=== PATIENT | female | born 1950 | race Caucasian/White ===

== ENCOUNTER 2017-11-07 17:04 | Inpatient (IN) | payer BC ==
[~2017-11-07] VITALS: Ht 139.7 cm; Wt 36.6 kg
[2017-11-07] MEDS ORDERED: MoRPHine SULFATE 2 MG/ML CARP IV PRN (19:00)
[2017-11-07] MEDS ORDERED: ONDANSETRON INJ 2 MG/ML 2 ML VIAL IV PRN (19:00)
[2017-11-07 19:05] VITALS: BP 138/83; PULSE 117; TEMP 38; O2SAT 96; BMI 17.6
[2017-11-07] MEDS ORDERED: HydrALAZINE HCL 20 MG/ML VIAL IV PRN (19:15)
[2017-11-07] MEDS ORDERED: SIMV20TA2 PO (19:27)
[2017-11-07] MEDS ORDERED: DORZ1SOL6 OP (19:27)
[2017-11-07] MEDS ORDERED: MULT-506 PO (19:27)
[2017-11-07] MEDS ORDERED: LISI-729 PO (19:27)
[2017-11-07] MEDS ORDERED: GLC/500 PO (19:27)
[2017-11-07] MEDS ORDERED: LATA0.5S OP (19:27)
[2017-11-07] MEDS ORDERED: OYST500T47 PO (19:27)
--- NOTE | 2017-11-07 19:28 | History and Physical ---
History & Physical Date & Time of Service: Nov 07, 2017 at 19:23 Chief Complaint: Acute Cholcystitis Primary Care Physician: Rafael Rod D.O. History of Present Illness pt is a transfer from [facility], she presented after one day of rigors and jaundice, she has some vague burning abdominal pain that is worsened post prandially she has had a few weeks of harding colored stools and tea colored urine. she has had a 15# weight loss over the last few week and has no history of gall stones or kidney stones I have not seen the CT scan or report but nursing reports suggest possible cholecystitis and duct dilation and cannot rule out pancreatic mass Past Medical/Surgical History Medical Problems: (1) Cholecystitis with cholelithiasis Family History family history of gall stones Social History Smoking Status: Never Smoker Smokeless Tobacco Use: No Alcohol Use: none Allergies Coded Allergies: Amoxicillin (Verified Allergy, Unknown, unknown, 11/07/17) Home Medications Scheduled Dorzolamide Hcl-Timolol Maleat (Cosopt Oph), 1 DROPS OP BID Latanoprost (Xalatan 0.005% Oph Grazyna), 1 DROPS OP HS Lisinopril (Zestril), 5 MG PO DAILY Metformin Hcl (Glucophage), 500 MG PO BID Multivitamin (Multivitamin), 1 TAB PO DAILY Oyster Shell (Calcium), 1 TAB PO DAILY Simvastatin (Zocor), 20 MG PO QPM Review of Systems ROS: well nourished well developed. No double vision blurry vision No problems with speech or swallowing No palpitations, chest pain or pressure No Wheezing or breathing issues mild abdominal pain, mild nausea no vomiting, no diarrhea but changes in stool apprearance, weight loss No burning urine urine frequency, darkness of urine No focal joint pain or muscle pain No skin rashes or oral lesions, but has been jaundiced No unusual bruising or bleeding No focused back pain or numbness or loss of strength No changes in memory or confusion Physical Exam General Appearance: WD/WN, no apparent distress Head: normocephalic, atraumatic Eyes: normal inspection, + abnormal sclerae exam (icteric) ENT: hearing grossly normal, + pertinent finding (buccal jaundice) Neck: supple, no JVD Respiratory/Chest: chest non-tender, lungs clear, normal breath sounds Cardiovascular: regular rate, rhythm, no murmur Abdomen/GI: normal bowel sounds, soft, + tenderness, + guarding Back: no CVA tenderness, normal range of motion Extremities/Musculoskelatal: no pedal edema, normal range of motion Neurologic/Psych: alert, oriented x 3 Skin: no rash, + jaundice Lymphatic: no adenopathy Diagnostics Diagnostic Radiology will need to review CT scans with GI medicine Impression Assessment and Plan (1) Cholecystitis with cholelithiasis Assessment & Plan: acute cholecystitis, will have on unasyn, I spoke to gastroenterology and they will see in consult to eval for possible ERCP and EUS , will keep npo after mn and hydrate with ivg, morphine iv for pain and zofran for nausea (2) Fever Assessment & Plan: antibiotics and will have blood cultures here if not done at [facility] (3) HTN (hypertension) Assessment & Plan: Pt typically takes some lisinopril, since npo will have hydralazine iv prn (4) Diabetes Assessment & Plan: will have to hold glucophage, will use ssi at this time (5) Dyslipidemia Assessment & Plan: will hold zocor Resuscitation Status VTE Prophylaxis Will order VTE Prophylaxis: Yes (heparin sq) Problem Qualifiers (1) Diabetes: Diabetes mellitus type: type 2 Diabetes mellitus shelter insulin use: without predatory animal exterminator use Diabetes mellitus complication status: without complication Qualified Codes: E11.9 - Type 2 diabetes mellitus without complications
[2017-11-07] MEDS ORDERED: GLUCAGON FOR INJ 1 MG VIAL IM PRN (20:30)
[2017-11-07] MEDS ORDERED: CARBOHYDRATES FOR HYPOGLYCEMIA PO PRN (20:30)
[2017-11-07] MEDS ORDERED: DEXTROSE 50% 50 ML SYR IV PRN (20:30)
[2017-11-07] MEDS ORDERED: GLUCOSE 10 TABS/TUBE PO PRN (20:30)
[2017-11-07] MEDS ORDERED: GLUCOSE 40% GEL 15 GM TUBE PO PRN (20:30)
[2017-11-07 21:41] LABS: PTT PATIENT 26.1 SECONDS (21.0-31.0)
[2017-11-07] MEDS: AMPICILLIN/SULBACTAM SOD INJ 3,000 MG in SODIUM CHLORIDE 0.9% 100ML 100 ML IV SCH (21:55)
[2017-11-07] MEDS: SODIUM CHLORIDE 0.9% 1000ML 1,000 ML IV SCH (21:55)
[2017-11-07] MEDS: INSULIN ASPART 100 UNITS/ML 3 ML PEN SC SCH (21:58)
[2017-11-07 23:33] VITALS: BP 169/78; PULSE 95; TEMP 37; O2SAT 98
[2017-11-08] VITALS (14 sets, daily range): BP systolic 117–177; BP diastolic 63–89; PULSE 87–105; TEMP 36.5–37.3; O2SAT 95–99; Ht 139.7 cm; Wt 36.6 kg
[2017-11-08] MEDS: AMPICILLIN/SULBACTAM SOD INJ 3,000 MG in SODIUM CHLORIDE 0.9% 100ML 100 ML IV SCH ×4 (03:02→20:14)
[2017-11-08 07:10] LABS: HEMATOCRIT 31.9 % (37-47); HEMOGLOBIN 10.4 g/dL (12.0-16.0); MEAN CELL VOLUME 93.5 fL (80-100); MEAN CORPUSCULAR HEMOGLOBIN 30.5 pg (25-34); MEAN CORPUSCULAR HGB CONC 32.6 g/dl (32-36); MEAN PLATELET VOLUME 9.6 fL (7.4-10.4); PLATELET COUNT 337 K/uL (130-400); RED CELL DISTRIBUTION WIDTH CV 14.9 % (11.5-14.5); RED CELL DISTRIBUTION WIDTH SD 51.4 fL (36.4-46.3); WHITE BLOOD COUNT 10.39 K/uL (4.8-10.8)
[2017-11-08 07:45] LABS: ALBUMIN 1.8 gm/dl (3.4-5.0); CALCIUM 8.2 mg/dl (8.5-10.1); CREATININE 0.6 mg/dl (0.60-1.20); POTASSIUM 2.8 mmol/L (3.5-5.1)
[2017-11-08] MEDS: SODIUM CHLORIDE 0.9% 1000ML 1,000 ML IV SCH (07:50)
[2017-11-08] MEDS: HEPARIN SOD 5000 UNIT/0.5 ML CARP SQ SCH ×2 (07:51→20:13)
[2017-11-08] MEDS: INSULIN ASPART 100 UNITS/ML 3 ML PEN SC SCH ×4 (07:52→20:14)
--- NOTE | 2017-11-08 08:04 | Progress Note ---
Subjective Date of Service: Nov 08, 2017. Subjective pt has fairly painless jaundice, she is for EGD and Possible EUS today pt otherwise has no new complaints Review of Systems Constitutional: + weakness, No fever, No chills ENT: No hearing loss, No nasal symptoms Respiratory: No cough, No sputum, No wheezing Cardiac: No chest pain, No orthopnea, No PND Abdomen: + nausea, No pain, No vomiting, No diarrhea, No constipation Musculoskeletal: No joint pain, No muscle pain Female : No dysuria, No urinary frequency, No hematuria Psychiatric: No depression symptoms, No anhedonism Objective Vital Signs Date Time Temp Pulse Resp B/P (MAP) Pulse Ox O2 Delivery O2 Flow Rate FiO2 11/08/17 07:15 37.1 95 18 157/75 (102) 95 Room Air 11/08/17 03:48 37.1 93 16 177/87 (117) 95 11/08/17 00:11 96 Room Air 11/07/17 23:33 37.0 95 18 169/78 (108) 98 Room Air 11/07/17 19:05 38.0 117 16 138/83 96 Room Air Physical Exam General Appearance: WD/WN, + thin Eyes: normal inspection, sclerae normal Respiratory/Chest: chest non-tender, lungs clear, normal breath sounds Cardiovascular: regular rate, rhythm, no murmur Abdomen: normal bowel sounds, soft, + tenderness Extremities: no pedal edema, no calf tenderness Neurologic/Psychiatric: alert, oriented x 3 Skin: + jaundice Laboratory Results Last 24 Hours Test 11/07/17 21:21 11/07/17 21:50 11/08/17 06:43 11/08/17 07:24 Prothrombin Time 10.7 SECONDS Prothromb Time International Ratio 1.0 Activated Partial Thromboplast Time 26.1 SECONDS Partial Thromboplastin Ratio 1.0 Pro-B-Type Natriuretic Peptide 1740 pg/ml Bedside Glucose 237 mg/dl 183 mg/dl White Blood Count 10.39 K/uL Red Blood Count 3.41 M/uL Hemoglobin 10.4 g/dL Hematocrit 31.9 % Mean Corpuscular Volume 93.5 fL Mean Corpuscular Hemoglobin 30.5 pg Mean Corpuscular Hemoglobin Concent 32.6 g/dl RDW Standard Deviation 51.4 fL RDW Coefficient of Variation 14.9 % Platelet Count 337 K/uL Mean Platelet Volume 9.6 fL Sodium Level 141 mmol/L Potassium Level 2.8 mmol/L Chloride Level 104 mmol/L Carbon Dioxide Level 28 mmol/L Anion Gap 9.0 mmol/L Blood Urea Nitrogen 8 mg/dl Creatinine 0.60 mg/dl Est Creatinine Clear Calc Drug Dose 48.8 ml/min Estimated GFR () 109.3 Estimated GFR (Non- 94.3 BUN/Creatinine Ratio 12.7 Random Glucose 178 mg/dl Calcium Level 8.2 mg/dl Magnesium Level 1.5 mg/dl Total Bilirubin 9.0 mg/dl Direct Bilirubin 7.9 mg/dl Aspartate Amino Transf (AST/SGOT) 306 U/L Alanine Aminotransferase (ALT/SGPT) 140 U/L Total Protein 5.0 gm/dl Albumin 1.8 gm/dl Lipase 8204 U/L Assessment and Plan (1) Cholecystitis with cholelithiasis Assessment & Plan: acute cholecystitis, continue unasyn, Dr raya will see in consult to eval for possible ERCP and EUS, hydrate with iv, morphine iv for pain and zofran for nausea concern for possible pancreatic lesion (2) Fever Assessment & Plan: no further fever on antibiotics wbc has reduced (3) HTN (hypertension) Assessment & Plan: Pt typically takes some lisinopril, continue to hold since npo will have hydralazine iv prn (4) Diabetes Assessment & Plan: will have to hold glucophage, will use ssi at this time (5) Dyslipidemia (6) Hypokalemia Assessment & Plan: will supplement with iv since pt is npo (7) Hypomagnesemia Assessment & Plan: supplement iv (8) Pancreatitis Assessment & Plan: concern for obstuction of biliary drainage still not clear of etiology, will have GI eval Problem Qualifiers (1) Diabetes: Diabetes mellitus type: type 2 Diabetes mellitus sheet rock finisher insulin use: without halfway use Diabetes mellitus complication status: without complication Qualified Codes: E11.9 - Type 2 diabetes mellitus without complications
[2017-11-08] MEDS ORDERED: MAGNESIUM SULFATE 1GM / D5W 100 ML IV ONE (08:15)
[2017-11-08] MEDS: POTASSIUM CHLORIDE INJ 40 MEQ in SODIUM CHLORIDE 0.9% 1000ML 1,000 ML IV SCH ×2 (08:42→18:27)
[2017-11-08] MEDS: POTASSIUM CHLR 10 MEQ / WTR 100 ML IV SCH ×3 (08:42→11:52)
--- NOTE | 2017-11-08 14:32 | History & Physical Bridge Note ---
H&P Re-Evaluation Bridge Note: I have examined the patient, reviewed the History & Physical and in the interval since the performance of the History & Physical I have noted the following changes of clinical significance: No changes noted Full dictation to follow obstructive jaundice For EUS/ERCP consent obtained risks/benefits alternatives d/w pt 5% risk pancreatitis Pt agrees to proceed AAO x3 Nl s1s2 Lungs CTA Abd soft NT ND + BS - CCE EUS/ERCP today pema
[2017-11-08] MEDS ORDERED: FENTANYL CITRATE INJ 50 MCG/1 ML 2 ML VIAL ONE (14:46)
[2017-11-08] MEDS ORDERED: ONDANSETRON INJ 2 MG/ML 2 ML VIAL IV PRN (15:15)
[2017-11-08] MEDS ORDERED: ATROPINE SULFATE 0.1 MG/ML 5ML SYR IV PRN (15:15)
[2017-11-08] MEDS ORDERED: FENTANYL CITRATE INJ 50 MCG/1 ML 2 ML VIAL IV PRN (15:15)
[2017-11-08] MEDS ORDERED: EpHEDrine SULFATE INJ 50 MG/ML AMP IV PRN (15:15)
[2017-11-08 15:16] LABS: CALCIUM 8.5 mg/dl (8.5-10.1); CREATININE 0.51 mg/dl (0.60-1.20); POTASSIUM 3.4 mmol/L (3.5-5.1)
[2017-11-08] MEDS ORDERED: PROPOFOL IV EMULSION 10 MG/ML 20 ML VIAL ONE (16:10)
[2017-11-08] MEDS ORDERED: ONDANSETRON INJ 2 MG/ML 2 ML VIAL ONE (16:10)
[2017-11-08] MEDS ORDERED: SUCCINYLCHOLINE CHLORIDE 20 MG/ML 10 ML VIAL IV ONE (16:10)
[2017-11-08] MEDS ORDERED: PHENYLEPHRINE HCL INJ 10 MG/ML VIAL ONE (16:10)
[2017-11-08] MEDS ORDERED: LIDOCAINE HCL 2% 2 ML VIAL (20MG/ML) ONE (16:10)
--- NOTE | 2017-11-08 16:47 | GASTROINTESTINAL CONSULTATION ---
DATE OF CONSULTATION: 11/08/2017 CHIEF COMPLAINT: Jaundice, dilated biliary ducts, abnormal CT. HISTORY OF PRESENT ILLNESS: This is a 67-year-old white female who reports a 2- to 3-month history of progressive slow weight loss, intermittent burning in the abdomen, nausea, intermittent vomiting. Over the last week or 2, she has noticed progressive change in her stool and urine color as well as her skin color, suggesting obstructive jaundice. She was seen at [facility] yesterday where the imaging studies and blood work was obtained showing obstructive pattern and she was subsequently transferred to [facility] for further workup. The patient denies any known fevers at home, although she would at times have chills. Her appetite has been somewhat diminished and has been trending towards constipation. The patient has no known history of pancreatic or liver disorders. PAST MEDICAL HISTORY: Includes hypertension. There is a history also on imaging study suggesting possible cholecystitis with cholelithiasis. FAMILY HISTORY: Significant for a brother with gallstones, but there is no cancer history known in the pancreas, gallbladder or cancer in liver or gastrointestinal tract. SOCIAL HISTORY: The patient denies tobacco usage. Does not use alcoholic beverages. HOME ALLERGIES: INCLUDE AMOXICILLIN. HOME MEDICATIONS: Include dorzolamide and timolol eyedrops, latanoprost, lisinopril, metformin, multivitamins, oyster shell, and simvastatin. REVIEW OF SYSTEMS: Otherwise noncontributory based on 13-point exam except for mentioned above. There are no reports of melena or bright red blood per rectum, odynophagia or dysphagia. PHYSICAL EXAMINATION: GENERAL: Today, currently, the [facility] is [facility] area. She is awake, alert and oriented x3, accompanied by her family members. VITAL SIGNS: Currently include blood pressure 172/80, respirations 16, heart rate 88, temp 37.3. She is 98% on room air. HEENT: Sclerae are icteric. Oral mucosa moist, although buccal mucosa is slightly icteric. Head normocephalic, atraumatic. NECK: There is no cervical or supraclavicular adenopathy. I do not appreciate thyromegaly. Normal range of motion. EXTREMITIES: Show normal range of motion. NEUROLOGIC: There are no focal neurologic defects. HEART: Normal S1, S2. LUNGS: Clear to auscultation without rales, rhonchi or wheeze. ABDOMEN: Soft, nontender, nondistended with positive bowel sounds. There is no rebound or guarding. There is a questionable firm edge to the liver, but it is unclear. The liver itself appears normal in breadth. I do not appreciate a spleen tip. There is no evidence of ascites or shifting dullness. EXTREMITIES: Without clubbing, cyanosis or edema. RECTAL: Deferred. LABORATORY DATA: I reviewed laboratory studies from this morning. White count 10.3; hemoglobin 10.4; MCV 93.5; platelets 337,000. Her admission electrolytes; potassium was 2.8 early this morning, sodium 141, calcium 8.2, magnesium 1.5. Total bilirubin 9.0, direct 7.9, AST 306, ALT 140, alkaline phosphatase 1109. Albumin 1.8. Total protein 5, lipase 8204. Pro natriuretic peptide 1704. Hepatitis C is negative. IMAGING: There are no imaging studies during this hospitalization. I did review the CT scan on PACS which showed no obvious ascites. There is a question of a mass-like effect in the region of the pancreatic head, but more specifically near the ampulla. There is ductal dilation throughout the bile duct. Both pancreatic ducts, extra and intrahepatic ducts are dilated. No obvious filling defect is seen. Obvious lymphadenopathy is not appreciated. IMPRESSION AND PLAN: The patient with a several month history of slow progressive weight loss, progressive jaundice, rigors without known fever and chills. Her biochemistries are suggestive of acute obstructive jaundice, although pancreas enzymes were also elevated this morning. This was at 7:00 this morning. At the present time, she has no significant abdominal pain and her abdominal exam is benign. Differential diagnosis includes possible ampullary mass, pancreatic head mass with obstructive jaundice. The gallbladder wall looks slightly thickened, although this may just be due to the low albumin. I made the following recommendations. I believe it is reasonable to pursue EGD/potentially EUS and ERCP to exclude any luminal disease, assess the ampullary and post-duodenal bulb area as well as the gastric lining and EUS to assess for any specific masses or lymphadenopathy, particularly along the stomach and gastrohepatic region. In addition, ERCP to hopefully achieve some biliary decompression will be attempted. I did speak with the patient at length regarding the risks, benefits and alternatives of these approaches particularly including the risk of bleeding, infection, perforation and an approximate 5% risk of pancreatitis associated with EUS with FNA and ERCP. The patient agreed to proceed. Further recommendations to follow. We will plan to perform these studies later this afternoon here. All questions answered.
--- NOTE | 2017-11-08 17:36 | [facility] Post Operative Brief Note ---
Immediate Operative Summary Operative Date Nov 08, 2017. Pre-Operative Diagnosis Jaundice, abnormal liver test and scans Post-Operative Diagnosis 1) EGD /bx + gastric and duodenal ulcers 2)EUS with FNA- + GB stones, CBD stones; dilated PD and CBD 3) ERCP with sphinterotomy/ stone extraction and bx Procedure(s) Performed EGD/EUS/ERCP Surgeon Dr Danielle Piling Cutter Surgeon(s) none Estimated Blood Loss none Findings Consistent with Post-Op Diagnosis Specimens all specimens handled by endo staff Anesthesia Type General Overlapping Procedure I was immediately available: during the entire case
--- NOTE | 2017-11-08 17:43 | DIAGNOSTIC IMAGING REPORT ---
ERCP BILIARY DUCTAL CLINICAL HISTORY: EXPLORE DUCTS COMPARISON STUDY: Outside hospital abdomen and pelvis CT 11/07/2017. FLUOROSCOPY TIME: 545 seconds. 10 fluoroscopic spot images of the right upper quadrant. FINDINGS: The endoscope is seen at the second portion of the duodenum. The ampulla is cannulated. Contrast is injected into the distended common bile duct. A balloon sweep was performed. IMPRESSION: Fluoroscopy provided for ERCP. Electronically signed by: Amaury Ramos M.D. 11/08/2017 5:41 PM Dictated Date/Time: 11/08/2017 5:40 PM
--- NOTE | 2017-11-08 18:05 | Anesthesiology Progress Note ---
Anesthesia Post Op Note Date & Time Nov 08, 2017 at 18:05 Vital Signs Pain Intensity: 0 Vital Signs Past 12 Hours Date Time Temp Pulse Resp B/P (MAP) Pulse Ox O2 Delivery O2 Flow Rate FiO2 11/08/17 18:00 98 18 125/81 100 Oxymask 10 11/08/17 17:50 98 16 156/73 100 Oxymask 10 11/08/17 17:43 36.2 97 19 167/81 100 Oxymask 10 11/08/17 11:59 37.3 88 16 172/80 (110) 98 Room Air 11/08/17 08:00 95 Room Air 11/08/17 07:15 37.1 95 18 157/75 (102) 95 Room Air Notes Mental Status: alert / awake / arousable, participated in evaluation Pt Amnestic to Procedure: Yes Nausea / Vomiting: adequately controlled Pain: adequately controlled Airway Patency, RR, SpO2: stable & adequate BP & HR: stable & adequate Hydration State: stable & adequate Anesthetic Complications: no major complications apparent
[2017-11-08] MEDS ORDERED: NURSING VERBAL MED ORDER ONE (18:15)
--- NOTE | 2017-11-08 18:50 | GI REPORT ---
Patient Name: Kathy Quinteros Procedure Date: 11/08/2017 3:07 PM Date of : 1950 Admit Type: Inpatient Age: 67 Gender: Female Attending MD: Ritesh Danielle MD Procedure: Upper GI endoscopy Providers: Ritesh Danielle MD Referring MD: Pritesh Crowley Indications: Abnormal CT of the GI tract, Nausea with vomiting, Weight loss Medicines: General Anesthesia Complications: No immediate complications. Estimated blood loss: Minimal. Estimated Blood Loss: Estimated blood loss was minimal. Procedure: Pre-Anesthesia Assessment: - Prior to the procedure, a History and Physical was performed, and patient medications and allergies were reviewed. The patient's tolerance of previous anesthesia was also reviewed. The risks and benefits of the procedure and the sedation options and risks were discussed with the patient. All questions were answered, and informed consent was obtained. Prior Anticoagulants: The patient has taken no previous anticoagulant or antiplatelet agents. ASA Grade Assessment: III - A patient with severe systemic disease. After reviewing the risks and benefits, the patient was deemed in satisfactory condition to undergo the procedure. After obtaining informed consent, the endoscope was passed under direct vision. Throughout the procedure, the patient's blood pressure, pulse, and oxygen saturations were monitored continuously. The scope was introduced through the mouth, and advanced to the third part of duodenum. The upper GI endoscopy was accomplished without difficulty. The patient tolerated the procedure well. Findings: The upper third of the esophagus and middle third of the esophagus were normal. One benign-appearing, intrinsic stenosis was found 31 cm from the incisors. This stenosis was mildly severe (non-circumferential scarring) and measured less than one cm (in length). The stenosis was traversed. The cardia, gastric fundus and gastric body were normal. Four non-bleeding cratered gastric ulcers with no stigmata of bleeding were found in the gastric antrum and in the prepyloric region of the stomach. The largest lesion was 10 mm in largest dimension. Biopsies were taken with a cold forceps for histology. Estimated blood loss was minimal. Verification of patient identification for the specimen was done by the physician and cardiology technician using the patient's name and medical record number. Two non-bleeding cratered duodenal ulcers with no stigmata of bleeding were found in the duodenal bulb. The largest lesion was 7 mm in largest dimension. A 20 mm non-bleeding diverticulum was found in the second portion of the duodenum. The cardia and gastric fundus were normal on retroflexion. Retained gastric contents are not identified on this exam. Impression: - Normal upper third of esophagus and middle third of esophagus. - Benign-appearing esophageal stenosis. - Normal cardia, gastric fundus and gastric body. - Non-bleeding gastric ulcers with no stigmata of bleeding. Biopsied. - Multiple non-bleeding duodenal ulcers with no stigmata of bleeding. - Non-bleeding duodenal diverticulum. Recommendation: - [facility]. - Perform an upper endoscopic ultrasound (UEUS) today. - Await pathology results. - Repeat upper endoscopy for surveillance based on pathology results. MD Ritesh Lynn MD 11/08/2017 6:49:44 PM This report has been signed electronically. Note Initiated On: 11/08/2017 3:07 PM Number of Addenda: 0 I attest to the content of the Intraoperative Record and orders documented therein, exceptions below {[id number]}
--- NOTE | 2017-11-08 19:05 | GI REPORT ---
Patient Name: Kathy Quinteros Procedure Date: 11/08/2017 3:10 PM Date of : 1950 Admit Type: Inpatient Age: 67 Gender: Female Attending MD: Ritesh Danielle MD Procedure: Upper EUS Providers: Ritesh Danielle MD Referring MD: Pritesh Crowley Indications: Common bile duct dilation (acquired) seen on CT scan, Dilated pancreatic duct on CT scan Medicines: General Anesthesia Complications: No immediate complications. Estimated blood loss: None. Estimated Blood Loss: Estimated blood loss: none. Procedure: Pre-Anesthesia Assessment: - Prior to the procedure, a History and Physical was performed, and patient medications and allergies were reviewed. The patient's tolerance of previous anesthesia was also reviewed. The risks and benefits of the procedure and the sedation options and risks were discussed with the patient. All questions were answered, and informed consent was obtained. Prior Anticoagulants: The patient has taken no previous anticoagulant or antiplatelet agents. ASA Grade Assessment: III - A patient with severe systemic disease. After reviewing the risks and benefits, the patient was deemed in satisfactory condition to undergo the procedure. After obtaining informed consent, the endoscope was passed under direct vision. Throughout the procedure, the patient's blood pressure, pulse, and oxygen saturations were monitored continuously. The scope was introduced through the mouth, and advanced to the duodenum for ultrasound examination from the esophagus, stomach and duodenum. The upper EUS was accomplished without difficulty. The patient tolerated the procedure well. Findings: Endosonographic Finding : The esophagus was visualized endosonographically. There was no sign of significant endosonographic abnormality in the esophagus. No pathologic lymphadenopathy was identified. Endosonographic images of the stomach were unremarkable. No pathologic lymphadenopathy was identified. There was no sign of significant endosonographic abnormality in the second portion of the duodenum. No pathologic lymphadenopathy was identified. Diffuse wall thickening was visualized endosonographically in the ampulla. The thickness of the abnormal layers. Fine needle aspiration for cytology was performed. Color Doppler imaging was utilized prior to needle puncture to confirm a lack of significant vascular structures within the needle path. Three passes were made with the 22 gauge needle using a transduodenal approach. A stylet was used. A armature inspector was present and performed a preliminary cytologic examination. The cellularity of the specimen was adequate. Final cytology results are pending. Estimated blood loss: none. One stone was visualized endosonographically in the lower third of the main bile duct. The stone measured 11 mm in greatest dimension. The stone was irregular. It was hyperechoic and characterized by shadowing. A small amount of hyperechoic material consistent with sludge was visualized endosonographically in the common bile duct. There was dilation in the common bile duct, in the main bile duct, in the common hepatic duct, where the hepatic duct bifurcates into the right and left hepatic ducts and diffusely throughout the intrahepatic bile duct(s) which measured up to 16 mm. Three stones were visualized endosonographically in the gallbladder. The stones were round. They were hyperechoic and characterized by shadowing. The pancreatic duct had a dilated endosonographic appearance in the pancreatic head and body of the pancreas. The pancreatic duct measured up to 8 mm in diameter. There was no sign of significant endosonographic abnormality in the visualized portion of the liver. Homogeneous parenchyma, no focal pathology, no pathologic lymphadenopathy and no masses were identified. Endosonographic imaging in the pancreatic head, pancreatic body and pancreatic tail showed no parenchymal abnormalities. There was no sign of significant endosonographic abnormality in the left adrenal gland. No abnormal echogenicity was identified. There was no sign of significant endosonographic abnormality in the visualized portion of the left kidney. No abnormal echogenicity was identified. There was no sign of significant endosonographic abnormality in the spleen. No focal pathology was identified. Impression: - There was no sign of significant pathology in the esophagus. - Endosonographic images of the stomach were unremarkable. - There was no sign of significant pathology in the second portion of the duodenum. - Wall thickening was seen in the ampulla. Fine needle aspiration performed. - One stone was visualized endosonographically in the lower third of the main bile duct. - Hyperechoic material consistent with sludge was visualized endosonographically in the common bile duct. - There was dilation in the common bile duct, in the entire main bile duct, in the common hepatic duct, in the bifurcation of the common hepatic duct and in the intrahepatic bile ducts, diffusely which measured up to 16 mm. - Three stones were visualized endosonographically in the gallbladder. - The pancreatic duct had a dilated endosonographic appearance in the pancreatic head and body of the pancreas. The pancreatic duct measured up to 8 mm in diameter. - There was no evidence of significant pathology in the visualized portion of the liver. - Endosonographic images of the left adrenal gland were unremarkable. - Endosonographic images of the left kidney were unremarkable. - Endosonographic images of the spleen were unremarkable. Recommendation: - Perform an ERCP today. - Clear liquid diet today. - [facility]. MD Ritesh Lynn MD 11/08/2017 7:04:57 PM This report has been signed electronically. Note Initiated On: 11/08/2017 3:10 PM Number of Addenda: 0 I attest to the content of the Intraoperative Record and orders documented therein, exceptions below {[id number]}
--- NOTE | 2017-11-08 19:14 | GI REPORT ---
Patient Name: Kathy Quinteros Procedure Date: 11/08/2017 3:05 PM Date of : 1950 Admit Type: Inpatient Age: 67 Gender: Female Attending MD: Ritesh Danielle MD Procedure: ERCP Providers: Ritesh Danielle MD Referring MD: Pritesh Crowley Indications: Bile duct stone on Ultrasound, Bile duct stone(s), Jaundice Medicines: General Anesthesia Complications: No immediate complications. Estimated blood loss: None Estimated Blood Loss: Estimated blood loss: none. Procedure: Pre-Anesthesia Assessment: - Prior to the procedure, a History and Physical was performed, and patient medications and allergies were reviewed. The patient's tolerance of previous anesthesia was also reviewed. The risks and benefits of the procedure and the sedation options and risks were discussed with the patient. All questions were answered, and informed consent was obtained. Prior Anticoagulants: The patient has taken no previous anticoagulant or antiplatelet agents. ASA Grade Assessment: III - A patient with severe systemic disease. After reviewing the risks and benefits, the patient was deemed in satisfactory condition to undergo the procedure. After obtaining informed consent, the scope was passed under direct vision. Throughout the procedure, the patient's blood pressure, pulse, and oxygen saturations were monitored continuously. The Scope was introduced through the mouth, and advanced to the duodenum and used to inject contrast into the bile duct. The ERCP was accomplished without difficulty. The patient tolerated the procedure well. Findings: The potato chip maker film was normal. The esophagus was successfully intubated under direct vision. The scope was advanced to a normal major papilla in the descending duodenum without detailed examination of the pharynx, larynx and associated structures, and upper GI tract. The upper GI tract was grossly normal. A straight 0.035 inch Tracer [employer] Direct wire was passed into the biliary tree. The short-nosed traction sphincterotome was passed over the guidewire and the bile duct was then deeply cannulated. Contrast was injected. I personally interpreted the bile duct images. Ductal flow of contrast was adequate. Image quality was adequate. Contrast extended to the entire biliary tree. Opacification of the entire biliary tree was successful. The maximum diameter of the ducts was 16 mm. The lower third of the main bile duct contained one stone mm. The entire biliary tree was severely dilated and diffusely dilated, with a stone causing an obstruction. The largest diameter was 16 mm. A 6 mm biliary sphincterotomy was made with a short nose sphincterotome using ERBE electrocautery. There was no post-sphincterotomy bleeding. The biliary tree was swept with an 8.5 mm balloon, 10 mm balloon, 12 mm balloon and 15 mm balloon starting at the bifurcation. Sludge was swept from the duct. All stones were removed. Pus was swept from the duct. -The exposed ampullary area after sphincterotome was sampled with cold biopsy forceps. This was biopsied with a cold forceps for histology. Followup final occlusion cholangiogram revealed no persisting fixed or mobile filling defects. The PD was neither instrumented nor opacified. No [place] cytology samples taken. No stents placed during this ERCP. Impression: - The entire biliary tree was severely dilated, with a stone causing an obstruction. - Choledocholithiasis was found. Complete removal was accomplished by biliary sphincterotomy and balloon extraction. - A biliary sphincterotomy was performed. - The biliary tree was swept. Recommendation: - [facility]. - Use a proton pump inhibitor IV BID. - Clear liquid diet today. - Continue antibiotics - Gastrin level - CT with IV contrast of abd/pelvis to reassess pancreatic region in 2-3 days MD Ritesh Lynn MD 11/08/2017 7:13:59 PM This report has been signed electronically. Note Initiated On: 11/08/2017 3:05 PM Number of Addenda: 0 I attest to the content of the Intraoperative Record and orders documented therein, exceptions below {[id number]}
--- NOTE | 2017-11-08 19:21 | GASTROENTEROLOGY PROGRESS NOTE ---
DATE: 11/08/2017 Gastroenterology update note The patient underwent upper endoscopy, EUS with FNA, and ERCP with sphincterotomy. EGD revealed multiple gastric ulcers in the antrum and in the duodenal bulb. Biopsies were taken. EUS revealed a markedly dilated biliary system that seemed to terminate at the ampulla along with the pancreatic duct that was dilated in the head region which also terminated in the ampulla. A filling defect was also identified. Shadowing, filling defect was identified in the ampulla that likely suggest a stone, although there was some soft tissue swelling in that area. Fine needle aspiration was obtained with the preliminary report of benign features that likely favor ductal epithelium. Final path however, is pending. ERCP with sphincterotomy revealed a large stone impacted in the distal bile duct at the ampulla, likely reflecting findings of an EUS and the endoscopic appearance with EGD and EUS. There is also a sizable diverticulum. Sphincterotomy with stone extraction by balloon sweep with additional stone fragments and sludge were liberated from the bile duct. The bile duct is expanded throughout its entirety, but on final occlusion cholangiogram, there was no evidence for a persistent fixed or mobile filling defect in the biliary tree. The contrast emptied promptly. IMPRESSION AND PLAN: 1. Would continue PPI b.i.d. and either later tonight or tomorrow, the patient's diet can be advanced. There were some features of pus that likely reflected ascending cholangitis and antibiotic therapy should be continued IV for a couple of days, then po for 7-10 days. would check to see if there was any blood cultures drawn at [facility] for culture and sensitivity. 2. No obvious adenopathy was identified. Given the multitude of ulcers, it is unclear if the patient was taking any appreciable amount of NSAIDs at home, a gastrin level is reasonable to exclude a hypersecretory state (ZE). The esophagus itself also was foreshortened with a narrowing, although jamila ulceration or obvious esophagitis was not appreciated. At some point in the next couple days, I recommended CT scan with IV contrast of the abdomen and pelvis with attention to the pancreatic region. Further recommendations once histology samples are available. All questions answered from the patient's brother and [id number] for whom these results were discussed shortly after completion of the procedure. [facility]
[2017-11-09] VITALS (7 sets, daily range): BP systolic 124–162; BP diastolic 67–78; PULSE 87–103; TEMP 36.5–37; O2SAT 95–98
[2017-11-09] MEDS: AMPICILLIN/SULBACTAM SOD INJ 3,000 MG in SODIUM CHLORIDE 0.9% 100ML 100 ML IV SCH ×4 (01:44→21:48)
[2017-11-09] MEDS: POTASSIUM CHLORIDE INJ 40 MEQ in SODIUM CHLORIDE 0.9% 1000ML 1,000 ML IV SCH (04:43)
[2017-11-09] MEDS: INSULIN ASPART 100 UNITS/ML 3 ML PEN SC SCH ×4 (07:00→20:49)
[2017-11-09 07:30] LABS: ALBUMIN 1.8 gm/dl (3.4-5.0); CALCIUM 8.1 mg/dl (8.5-10.1); CREATININE 0.49 mg/dl (0.60-1.20); POTASSIUM 4.3 mmol/L (3.5-5.1)
[2017-11-09 07:50] LABS: TOTAL PROTEIN 5.2 gm/dl (6.4-8.2)
[2017-11-09] MEDS: HEPARIN SOD 5000 UNIT/0.5 ML CARP SQ SCH ×2 (08:00→20:49)
--- NOTE | 2017-11-09 08:02 | Progress Note ---
Subjective Date of Service: Nov 09, 2017. Subjective pt is feeling much better has less abdominal distension and little pain. remains clinically jaundiced Review of Systems Constitutional: No fever, No chills, No weakness, No fatigue Respiratory: No cough, No shortness of breath, No dyspnea on exertion Cardiac: No chest pain, No edema Abdomen: + pain, No nausea, No vomiting, No diarrhea Neurologic: No memory loss, No weakness Psychiatric: No depression symptoms, No anhedonism, No anxiety Objective Vital Signs Date Time Temp Pulse Resp B/P (MAP) Pulse Ox O2 Delivery O2 Flow Rate FiO2 11/09/17 07:14 36.7 95 16 150/68 (95) 95 Room Air 11/09/17 03:50 36.9 103 16 141/73 (95) 98 Room Air 11/09/17 00:01 Room Air 11/08/17 23:35 37.1 105 16 160/68 (98) 96 Room Air 11/08/17 20:39 99 133/75 (94) 98 11/08/17 20:10 98 145/79 (101) 99 11/08/17 20:00 Nasal Cannula 2.0 11/08/17 19:39 97 154/84 (107) 97 11/08/17 19:24 95 156/89 (111) 95 11/08/17 19:09 96 158/79 (105) 96 11/08/17 18:55 87 134/63 (86) 99 11/08/17 18:40 36.5 16 117/75 (89) 98 Room Air 11/08/17 18:39 36.9 105 16 157/79 (105) 11/08/17 18:20 90 15 152/74 100 Nasal Cannula 4 11/08/17 18:10 36.4 92 16 154/73 100 Nasal Cannula 4 11/08/17 18:00 98 18 125/81 100 Oxymask 10 11/08/17 17:50 98 16 156/73 100 Oxymask 10 11/08/17 17:43 36.2 97 19 167/81 100 Oxymask 10 11/08/17 11:59 37.3 88 16 172/80 (110) 98 Room Air 11/08/17 08:00 95 Room Air Physical Exam General Appearance: WD/WN, + mild distress Eyes: normal inspection Neck: supple, no JVD Respiratory/Chest: chest non-tender, lungs clear, normal breath sounds Cardiovascular: regular rate, rhythm, no murmur Abdomen: normal bowel sounds, soft, + abnormal bowel sounds, + tenderness Extremities: no pedal edema, no calf tenderness Neurologic/Psychiatric: alert, oriented x 3 Laboratory Results Last 24 Hours Test 11/08/17 11:22 11/08/17 13:27 11/08/17 14:36 11/08/17 17:47 Bedside Glucose 202 mg/dl 117 mg/dl 121 mg/dl Sodium Level 137 mmol/L Potassium Level 3.4 mmol/L Chloride Level 102 mmol/L Carbon Dioxide Level 27 mmol/L Anion Gap 8.0 mmol/L Blood Urea Nitrogen 6 mg/dl Creatinine 0.51 mg/dl Est Creatinine Clear Calc Drug Dose 57.5 ml/min Estimated GFR () 115.3 Estimated GFR (Non- 99.5 BUN/Creatinine Ratio 12.7 Random Glucose 113 mg/dl Calcium Level 8.5 mg/dl Test 11/08/17 20:14 11/09/17 06:16 11/09/17 07:08 Bedside Glucose 135 mg/dl 98 mg/dl Sodium Level 140 mmol/L Potassium Level 4.3 mmol/L Chloride Level 107 mmol/L Carbon Dioxide Level 22 mmol/L Anion Gap 12.0 mmol/L Blood Urea Nitrogen 9 mg/dl Creatinine 0.49 mg/dl Est Creatinine Clear Calc Drug Dose 59.8 ml/min Estimated GFR () 116.8 Estimated GFR (Non- 100.8 BUN/Creatinine Ratio 19.1 Random Glucose 93 mg/dl Calcium Level 8.1 mg/dl Total Bilirubin 4.3 mg/dl Direct Bilirubin 3.6 mg/dl Aspartate Amino Transf (AST/SGOT) 162 U/L Alanine Aminotransferase (ALT/SGPT) 120 U/L Alkaline Phosphatase 1075 U/L Total Protein 5.2 gm/dl Albumin 1.8 gm/dl Lipase 386 U/L Assessment and Plan (1) Cholecystitis with cholelithiasis Assessment & Plan: acute cholecystitis, , Dr Danielle removed large stone from CBD and performed sphincterotomy, there was noted to be ulcerations in the stomach and duodenum, pus was also seen suggestive or cholangitis, antibiotics will be continued, preimianry blood cultures from outside hospital show enterococcus, recommendation for CT of Pancrease will be undertaken, hydrate with iv, morphine iv for pain and zofran for nausea (2) HTN (hypertension) Assessment & Plan: Pt typically takes some lisinopril, will restart lisinopril once taking po well, hydralazine iv prn (3) Diabetes Assessment & Plan: continue to hold glucophage, continue ssi at this time, add carb coverage as taking po (4) Dyslipidemia Assessment & Plan: holding statin as npo (5) Pancreatitis Assessment & Plan: pancreatitis is relieved as obstuction relived with stone removal allowing biliary drainage (6) Peptic ulcer disease Assessment & Plan: pt will be on BID ppi for at least 6 weeks Problem Qualifiers (1) Diabetes: Diabetes mellitus type: type 2 Diabetes mellitus care home insulin use: without care home use Diabetes mellitus complication status: without complication Qualified Codes: E11.9 - Type 2 diabetes mellitus without complications
--- NOTE | 2017-11-09 09:26 | Anesthesiology Progress Note ---
Anesthesia Post Op Note Date & Time Nov 09, 2017 at 09:25 Vital Signs Pain Intensity: 0.0 Vital Signs Past 12 Hours Date Time Temp Pulse Resp B/P (MAP) Pulse Ox O2 Delivery O2 Flow Rate FiO2 11/09/17 08:00 95 Room Air 11/09/17 07:14 36.7 95 16 150/68 (95) 95 Room Air 11/09/17 03:50 36.9 103 16 141/73 (95) 98 Room Air 11/09/17 00:01 Room Air 11/08/17 23:35 37.1 105 16 160/68 (98) 96 Room Air Notes Mental Status: alert / awake / arousable, participated in evaluation Pt Amnestic to Procedure: Yes Nausea / Vomiting: adequately controlled Pain: adequately controlled Airway Patency, RR, SpO2: stable & adequate BP & HR: stable & adequate Hydration State: stable & adequate Anesthetic Complications: no major complications apparent
[2017-11-09] MEDS ORDERED: NURSING VERBAL MED ORDER ONE (11:15)
--- NOTE | 2017-11-09 16:44 | PROGRESS NOTE ---
DATE: 11/09/2017 SUBJECTIVE: The patient reports less abdominal pain. OBJECTIVE: VITAL SIGNS: Show blood pressure 162/78, pulse 92, temperature is 36.9. Room air saturation 97%. LABORATORY DATA: Shows white count of 10.39, hemoglobin 10.4, platelets are 337,000. Liver tests show bilirubin of 4.3, which is down from 9. Her lipase has returned to normal at 386. Alkaline phosphatase is 1075. Gastrin level is pending. Biopsies of her ampule so far are benign without any signs of malignancy. Gastric biopsies show severe chronic gastritis with positive stain for H. pylori. IMPRESSION AND PLAN: The patient had common bile duct stone which was removed yesterday by Dr. Danielle. This caused gallstone pancreatitis which is also improving. She also was found to have H. pylori in her stomach. Plan on treating her with quadruple therapy including b.i.d. Protonix along with Biaxin, Flagyl and Pepto-Bismol. This should be continued for a total of 2 weeks to help heal her ulcers and reduce her risk for gastric cancer.
[2017-11-09] MEDS: BISMUTH SUBSALICYLATE 262 MG CHEW PO SCH ×2 (17:11→19:20)
[2017-11-09] MEDS: PANTOprazole SOD 40 MG TAB PO SCH (19:19)
[2017-11-09] MEDS: CLARITHROMYCIN 500 MG TAB PO SCH (19:19)
[2017-11-09] MEDS: METRONIDAZOLE 250 MG TAB PO SCH (19:20)
[2017-11-10] VITALS (8 sets, daily range): BP systolic 150–170; BP diastolic 75–90; PULSE 80–89; TEMP 36.6–37.1; O2SAT 95–98
[2017-11-10] MEDS: AMPICILLIN/SULBACTAM SOD INJ 3,000 MG in SODIUM CHLORIDE 0.9% 100ML 100 ML IV SCH ×2 (02:42→07:59)
[2017-11-10 06:32] LABS: HEMATOCRIT 31.9 % (37-47); HEMOGLOBIN 10.2 g/dL (12.0-16.0); MEAN CELL VOLUME 95.8 fL (80-100); MEAN CORPUSCULAR HEMOGLOBIN 30.6 pg (25-34); MEAN PLATELET VOLUME 9.3 fL (7.4-10.4); PLATELET COUNT 403 K/uL (130-400); RED CELL DISTRIBUTION WIDTH CV 14.5 % (11.5-14.5); RED CELL DISTRIBUTION WIDTH SD 50.9 fL (36.4-46.3); WHITE BLOOD COUNT 7.13 K/uL (4.8-10.8)
[2017-11-10 07:14] LABS: ALBUMIN 1.8 gm/dl (3.4-5.0); CALCIUM 7.9 mg/dl (8.5-10.1); CREATININE 0.55 mg/dl (0.60-1.20); POTASSIUM 3.8 mmol/L (3.5-5.1); TOTAL PROTEIN 4.9 gm/dl (6.4-8.2)
[2017-11-10] MEDS: CLARITHROMYCIN 500 MG TAB PO SCH ×2 (08:00→21:00)
[2017-11-10] MEDS: METRONIDAZOLE 250 MG TAB PO SCH ×2 (08:00→21:00)
[2017-11-10] MEDS: PANTOprazole SOD 40 MG TAB PO SCH ×2 (08:01→21:00)
[2017-11-10] MEDS: BISMUTH SUBSALICYLATE 262 MG CHEW PO SCH ×4 (08:01→20:59)
[2017-11-10] MEDS: INSULIN ASPART 100 UNITS/ML 3 ML PEN SC SCH ×4 (08:05→21:05)
[2017-11-10] MEDS: HEPARIN SOD 5000 UNIT/0.5 ML CARP SQ SCH ×2 (08:06→21:06)
--- NOTE | 2017-11-10 14:11 | Progress Note ---
Subjective Date of Service: Nov 10, 2017. Subjective this pt is doing much better, is found to have enterococcus on her blood on cultures from [facility], is sensitive to cipro, was also found to have H pylori seen on egd and is on quadruple therapy of clarithromycin, flagyl, protonix and peptobismol other pabon is doing well Review of Systems Constitutional: + weakness, + fatigue, No fever, No chills Respiratory: No sputum, No shortness of breath Cardiac: No chest pain, No edema Abdomen: No pain, No nausea, No vomiting, No diarrhea Female : No dysuria, No urinary frequency Psychiatric: No depression symptoms, No anxiety Objective Vital Signs Date Time Temp Pulse Resp B/P (MAP) Pulse Ox O2 Delivery O2 Flow Rate FiO2 11/10/17 13:43 37.1 84 18 98 11/10/17 11:51 37.1 84 18 156/87 (110) 98 Room Air 11/10/17 08:00 95 Room Air 11/10/17 07:11 37.1 84 18 159/75 (103) 95 Room Air 11/10/17 03:53 36.8 83 17 151/81 (104) 98 Room Air 11/09/17 23:59 Room Air 11/09/17 23:36 36.6 88 16 124/68 (86) 96 Room Air 11/09/17 19:25 Room Air 11/09/17 19:15 36.5 87 16 158/73 (101) 96 Room Air 11/09/17 15:01 36.9 92 16 162/78 (106) 97 Room Air Physical Exam General Appearance: WD/WN, + mild distress Eyes: normal inspection, sclerae normal Neck: supple, no JVD Respiratory/Chest: chest non-tender, lungs clear Cardiovascular: regular rate, rhythm, no murmur Abdomen: normal bowel sounds, non tender, soft Neurologic/Psychiatric: alert, oriented x 3 Laboratory Results Last 24 Hours Test 11/09/17 16:37 11/09/17 20:26 11/10/17 06:04 11/10/17 07:01 Bedside Glucose 155 mg/dl 243 mg/dl 226 mg/dl White Blood Count 7.13 K/uL Red Blood Count 3.33 M/uL Hemoglobin 10.2 g/dL Hematocrit 31.9 % Mean Corpuscular Volume 95.8 fL Mean Corpuscular Hemoglobin 30.6 pg Mean Corpuscular Hemoglobin Concent 32.0 g/dl RDW Standard Deviation 50.9 fL RDW Coefficient of Variation 14.5 % Platelet Count 403 K/uL Mean Platelet Volume 9.3 fL Sodium Level 138 mmol/L Potassium Level 3.8 mmol/L Chloride Level 105 mmol/L Carbon Dioxide Level 26 mmol/L Anion Gap 7.0 mmol/L Blood Urea Nitrogen 5 mg/dl Creatinine 0.55 mg/dl Est Creatinine Clear Calc Drug Dose 53.3 ml/min Estimated GFR () 112.5 Estimated GFR (Non- 97.1 BUN/Creatinine Ratio 9.9 Random Glucose 218 mg/dl Calcium Level 7.9 mg/dl Magnesium Level 1.7 mg/dl Total Bilirubin 2.7 mg/dl Direct Bilirubin 2.3 mg/dl Aspartate Amino Transf (AST/SGOT) 61 U/L Alanine Aminotransferase (ALT/SGPT) 81 U/L Alkaline Phosphatase 973 U/L Total Protein 4.9 gm/dl Albumin 1.8 gm/dl Lipase 594 U/L Test 11/10/17 11:24 Bedside Glucose 194 mg/dl Assessment and Plan (1) Cholecystitis with cholelithiasis Assessment & Plan: acute cholecystitis, , Dr Danielle removed large stone from CBD and performed sphincterotomy, there was noted to be ulcerations in the stomach and duodenum, pus was also seen suggestive or cholangitis, antibiotics will be continued, preliminary blood cultures from outside hospital show enterococcus, recommendation for CT of Pancrease will be undertaken, zofran for nausea (2) HTN (hypertension) Assessment & Plan: Pt typically takes some lisinopril, restart lisinopril hydralazine iv prn (3) Diabetes Assessment & Plan: continue to hold glucophage, continue ssi at this time, add carb coverage, consider restart glucophage at discharge (4) Dyslipidemia Assessment & Plan: holding statin restart at discharge (5) Pancreatitis Assessment & Plan: pancreatitis, obstruction relived with stone removal allowing biliary drainage, did have little elevation in enzymes but no clinical symptoms, advance diet 11/10 (6) Peptic ulcer disease Assessment & Plan: H pylori seen on stain, quaruple therapy ordered Problem Qualifiers (1) Diabetes: Diabetes mellitus type: type 2 Diabetes mellitus rn long term care insulin use: without rn long term care use Diabetes mellitus complication status: without complication Qualified Codes: E11.9 - Type 2 diabetes mellitus without complications
[2017-11-10] MEDS ORDERED: OPTIRAY 320 IV PRN (14:15)
[2017-11-10] MEDS ORDERED: LISINOPRIL 2.5 MG TAB PO ONE (14:45)
--- NOTE | 2017-11-10 16:05 | DIAGNOSTIC IMAGING REPORT ---
CT PANCREAS (ABDOMEN) COMBO CT DOSE: 343.51 mGycm CLINICAL HISTORY: Ductal dilatation. Possible pancreatic mass. TECHNIQUE: Unenhanced images were obtained through the abdomen. The patient was then scanned in a dynamic helical fashion during intravenous administration of 93 cc of Optiray 320. 30 seconds 82nd imaging was performed. A dose lowering technique was utilized adhering to the principles of ALARA. COMPARISON STUDY: Outside CT scan performed 11/07/2017 FINDINGS: Noncontrast images reveal small bilateral pleural effusions. There is a 2.5 mm lower pole right renal calculus. There is cholelithiasis. Postcontrast images reveal no hepatic masses. There is cholelithiasis. There is mild pericholecystic fluid. There is decreasing intrahepatic biliary ductal dilatation. The common bile duct measures 9 mm. There is a low cystic duct insertion. No renal masses are visualized. There is no evidence of abdominal aortic dilatation. No splenic masses are visualized. No pancreatic masses are visualized. There is borderline dilatation of the pancreatic duct within the pancreatic neck measuring 4 mm. There is gastric antral wall thickening. There is no evidence of pathologic adenopathy. IMPRESSION: 1. Small bilateral pleural effusions 2. Cholelithiasis and mild pericholecystic fluid. Interval resolution of the gallbladder distention. 3. Decreasing intra and extrahepatic biliary ductal dilatation 4. Borderline dilatation of the pancreatic duct within the pancreatic neck measuring 4 mm 5. No pancreatic masses identified on CT scanning 6. Gastric antral wall thickening 7. 2.5 mm lower pole right renal calculus Electronically signed by: Leroy Richard M.D. 11/10/2017 4:03 PM Dictated Date/Time: 11/10/2017 3:55 PM
--- NOTE | 2017-11-10 17:27 | PROGRESS NOTE ---
DATE: 11/10/2017 SUBJECTIVE: Patient reports no abdominal pain and was tolerating solid food at lunchtime today. OBJECTIVE: VITAL SIGNS: Show blood pressure 161/86, pulse 84, respirations 18. Room air saturations 97%, temperature is 36.7. ABDOMEN: Soft and nontender. Patient's hemoglobin remained stable at 10.2. Lipase is 594, alkaline phosphatase is declining to 973, bilirubin is also declining to 2.7. She is on day 2 of medication for H. pylori. She also was found to have a positive blood culture from [place] for enterococcus and is getting IV Cipro for that as well. IMPRESSION: Patient had gallstone pancreatitis with enterococcus bacteremia. Stone has been removed. She has also had peptic ulcers and positive Helicobacter pylori. PLAN: She is being treated. Her gastrin level is pending at this time. All the biopsies from her ERCP are nonmalignant. At this point we will continue treatment for her bacteremia and H. pylori.
[2017-11-10] MEDS: CIPROFLOXACIN / D5W 400 MG in PREMIXED IN D5W 200 ML IV SCH (18:16)
[2017-11-10] MEDS ORDERED: LATANOPROST 0.005% OP SOLN 2.5 ML BTL OP SCH (21:00)
[2017-11-10] MEDS: DORZOLAMIDE/TIMOLOL 22.3/6.8MG/ML 10 ML BTL OP SCH (21:06)
[2017-11-11] MEDS: CIPROFLOXACIN / D5W 400 MG in PREMIXED IN D5W 200 ML IV SCH (05:44)
[2017-11-11 06:55] LABS: CALCIUM 8.2 mg/dl (8.5-10.1); CREATININE 0.74 mg/dl (0.60-1.20); POTASSIUM 3.8 mmol/L (3.5-5.1); TOTAL PROTEIN 5.3 gm/dl (6.4-8.2)
[2017-11-11 07:28] VITALS: BP 166/88; PULSE 78; TEMP 36.6; O2SAT 96
[2017-11-11] MEDS: DORZOLAMIDE/TIMOLOL 22.3/6.8MG/ML 10 ML BTL OP SCH (07:55)
[2017-11-11] MEDS: BISMUTH SUBSALICYLATE 262 MG CHEW PO SCH ×2 (07:56→12:39)
[2017-11-11] MEDS: PANTOprazole SOD 40 MG TAB PO SCH (07:57)
[2017-11-11] MEDS: METRONIDAZOLE 250 MG TAB PO SCH (07:57)
[2017-11-11] MEDS: CLARITHROMYCIN 500 MG TAB PO SCH (07:57)
[2017-11-11] MEDS ORDERED: LISINOPRIL 5 MG TAB PO SCH (08:00)
[2017-11-11] MEDS: HEPARIN SOD 5000 UNIT/0.5 ML CARP SQ SCH (08:01)
[2017-11-11] MEDS: INSULIN ASPART 100 UNITS/ML 3 ML PEN SC SCH ×2 (09:21→12:41)
[2017-11-11] MEDS ORDERED: CPR500 PO (11:56)
[2017-11-11] MEDS ORDERED: MTR250 PO (11:56)
[2017-11-11] MEDS ORDERED: BXN500 PO (11:56)
[2017-11-11] MEDS ORDERED: PANT1TAB4 PO (11:56)
--- NOTE | 2017-11-11 11:59 | Discharge Instructions ---
Discharge Instructions Date of Service Nov 11, 2017. Admission Reason for Admission: Acute Cholcystitis Discharge Discharge Diagnosis / Problem: infected gall bladder and irritated pancrease from gall stones, blood infec Discharge Goals Goal(s): Diagnostic testing, Therapeutic intervention Activity Recommendations Activity Limitations: as noted below Lifting Limitations: gradually increase as tolerated . Instructions / Follow-Up Instructions / Follow-Up Please rest and recuperate DO NOT RESTART GLUCOPHAGE(METFORMIN) UNTIL MONDAY 11/13 DUE TO INTERACTION FROM IV DYE have a low carbohydrate diet Avoid Excedrin and ibuprofen aleve, Tylenol is ok Current Hospital Diet Patient's current hospital diet: Diabetes Type 2 Diet Discharge Diet Recommended Diet: Diabetes Type 2 Diet Procedures Procedures Performed: EGD/EUS/ERCP Pending Studies Studies pending at discharge: no Medical Emergencies . Who to Call and When: Medical Emergencies: If at any time you feel your situation is an emergency, please call 911 immediately. . Non-Emergent Contact Non-Emergency issues call your: Primary Care Provider Call Non-Emergent contact if: temperature is above 101, your pain is not controlled . . "Provider Documentation" section prepared by Pritesh Crowley. .
[2017-11-11] MEDS ORDERED: BISM262C6 PO (12:00)
[2017-11-11 12:48] VITALS: BP 166/88; PULSE 78; TEMP 36.6; O2SAT 96
--- NOTE | 2017-11-11 16:59 | Discharge Summary ---
Discharge Summary Date of Service Nov 11, 2017. Discharge Summary Admission Date: Nov 07, 2017 at 18:42 Discharge Date: Nov 11, 2017 Discharge Disposition: Home with services Principal Diagnosis: cholecystitis Procedures: ercp and eus Medication Reconciliation New Medications: Ciprofloxacin (Ciprofloxacin HCl) 500 Mg Tab 500 MG PO BID, #18 DOSE Bismuth Subsalicylate (Pepto-Bismol) 262 Mg Chw 1 TAB PO QID, #88 DOSE Clarithromycin (Clarithromycin) 500 Mg Tab 250 MG PO Q12, #24 TAB Metronidazole (Metronidazole) 250 Mg Tab 250 MG PO BID, #24 TAB Pantoprazole (Pantoprazole Sodium) 40 Mg Tab 40 MG PO BID, #90 TAB Continued Medications: Dorzolamide Hcl-Timolol Maleat (Cosopt Oph) 1 Grazyna Grazyna 1 DROPS OP BID, #10 ML 6 Refills Latanoprost (Xalatan 0.005% Oph Grazyna) 0.005 % Grazyna 1 DROPS OP HS, #7.5 ML 3 Refills Lisinopril (Zestril) 5 Mg Tab 5 MG PO DAILY, TAB Metformin Hcl (Glucophage) 500 Mg Tab 500 MG PO BID, TAB Multivitamin (Multivitamin) Tab 1 TAB PO DAILY, TAB Oyster Shell (Calcium) 500 Mg Tab 1 TAB PO DAILY Simvastatin (Zocor) 20 Mg Tab 20 MG PO QPM, TAB Discharge Exam Review of Systems: Constitutional: No fever, No chills Respiratory: No cough, No sputum Physical Exam: General Appearance: WD/WN, no apparent distress Abdomen / GI: normal bowel sounds, non tender, soft Hospital Course (1) Cholecystitis with cholelithiasis acute cholecystitis, , Dr Danielle removed large stone from CBD and performed sphincterotomy, there was noted to be ulcerations in the stomach and duodenum, pus was also seen suggestive or cholangitis, antibiotics will be continued as po cipro , preliminary blood cultures from outside hospital show enterococcus sensive to cipro, recommendation for CT of Pancrease unremarkable (2) HTN (hypertension) Pt typically takes some lisinopril, restart lisinopril (3) Diabetes resume Glucophage, at appropriate interval from Ct Scan carb coverage (4) Dyslipidemia statin restart at discharge (5) Pancreatitis pancreatitis, obstruction relived with stone removal allowing biliary drainage , did have little elevation in enzymes but no clinical symptoms, tolerated advanced diet 11/10 (6) Peptic ulcer disease H pylori seen on stain, quaruple therapy ordered Total Time Spent: Greater than 30 minutes This includes examination of the patient, discharge planning, medication reconciliation, and communication with other providers. Discharge Instructions Please refer to the electronic Patient Visit Report (Discharge Instructions) for additional information. Problem Qualifiers (1) Diabetes: Diabetes mellitus type: type 2 Diabetes mellitus usp insulin use: without usp use Diabetes mellitus complication status: without complication Qualified Codes: E11.9 - Type 2 diabetes mellitus without complications
--- NOTE | 2017-11-12 12:47 | PROGRESS NOTE ---
DATE: 11/09/2017 ADDENDUM The patient was visited in her hospital room on the day following her ERCP. The patient was reporting significant improvement in her abdominal pain. Her labs and progress were reviewed with the patient specifically during that time and I spent probably 10 minutes in the room with the patient.
== END 2017-11-11 15:18 | disposition home or self-care (01) | DRG 444 ==
LOC: C.2T 18:42 → ENRESERV 11-10 13:33 → C.4E 11-10 14:14
PROVIDERS: ADMIT Internal Medicine; ATTEND Internal Medicine
PROC: 0F798ZZ Dilation of Common Bile Duct, Via Natural or Artificial Opening Endoscopic (ICD-10-PCS; principal; 2017-11-08 08:30)
PROC: 0FC98ZZ Extirpation of Matter from Common Bile Duct, Via Natural or Artificial Opening Endoscopic (ICD-10-PCS; principal; 2017-11-08 08:30)
PROC: 0FBC8ZX Excision of Ampulla of Vater, Via Natural or Artificial Opening Endoscopic, Diagnostic (ICD-10-PCS; principal; 2017-11-08 08:30)
DX: K80.01 Calculus of gallbladder with acute cholecystitis with obstruction (principal); K85.10 Biliary acute pancreatitis without necrosis or infection; I10 Essential (primary) hypertension; E11.9 Type 2 diabetes mellitus without complications; E78.5 Hyperlipidemia, unspecified; B96.81 Helicobacter pylori [H. pylori] as the cause of diseases classified elsewhere; Z79.84 Long term (current) use of oral hypoglycemic drugs; Z79.899 Other long term (current) drug therapy